=== PATIENT | male | born 1950 | race Caucasian/White ===

== ENCOUNTER 2020-12-04 12:13 | Observation (INO) | payer MEDICARE, OTHER ==
--- NOTE | 2020-12-04 12:49 | EDM.PDOC ---
ED HPI GENERAL MEDICAL PROBLEM - General Chief Complaint: Lower Extremity Injury/Pain Stated Complaint: [facility] Time Seen by Provider: 12/04/20 12:30 Source of Information: Reports: Patient, EMS History Limitations: Reports: No Limitations - History of Present Illness INITIAL COMMENTS - FREE TEXT/NARRATIVE: 70-year-old male fell a couple days ago onto his left buttock, and he has had steadily worsening pain in the area since that time. He is having difficulty ambulating and bearing weight. No significant bruising or swelling. No head injury, fevers or chills or other complaints. He arrived by ambulance. Onset: Sudden Duration: Day(s): (2 days ago) Location: Reports: Pelvis (Left-sided buttock and pelvis area with some pain in the left hip) Quality: Reports: Sharp Worsens with: Reports: Other (Walking or weightbearing increases discomfort), Movement Associated Symptoms: Reports: No Other Symptoms left hip Pain Score (Numeric/FACES): 6 - Related Data Allergies Allergy/AdvReac Type Severity Reaction Status Date / Time No Known Allergies Allergy Verified 07/26/18 17:12 Home Meds: Home Meds carvediloL [Carvedilol] 1 tab PO BID 12/04/20 [History] cloNIDine [Catapres] 1 tab PO DAILY 12/04/20 [History] hydroCHLOROthiazide [Hydrochlorothiazide] 1 tab PO DAILY 12/04/20 [History] levETIRAcetam [Levetiracetam] 1 tab PO BID 12/04/20 [History] lisinopriL [Lisinopril] 1 tab PO DAILY 12/04/20 [History] Past Medical History HEENT History: Reports: Hard of Hearing Cardiovascular History: Reports: Hypertension - Past Surgical History Neurological Surgical History: Reports: Other (See Below) Review of Systems - Review of Systems Review Of Systems: See Below Constitutional: Denies: Fever Respiratory: Reports: No Symptoms Cardiovascular: Reports: No Symptoms GI/Abdominal: Reports: No Symptoms Musculoskeletal: Reports: Other (Chronic lower extremity weakness) Skin: Reports: Bruising (Bruises easily) Neurological: Reports: Dizziness, Weakness Psychiatric: Reports: Other (Chronic alcoholism) ED EXAM, GENERAL - Physical Exam Exam: See Below Exam Limited By: No Limitations General Appearance: Alert, No Apparent Distress, Other (Not significantly uncomfortable when lying supine and still) Head: Atraumatic Respiratory/Chest: No Respiratory Distress, Lungs Clear Cardiovascular: Regular Rate, Rhythm GI/Abdominal: Non-Tender Back Exam: Other (When lying on the right side, the buttock and low back was examined on the left side which showed no hematoma, bruising or asymmetry) Extremities: Other (A pulling sensation and pain in the left buttock with passive range of motion of the left lower extremity especially flexion of the hip. Internal and external rotation of the hip is somewhat tender.) Neurological: Alert, Oriented Skin Exam: Warm, Dry Course - Vital Signs Last Recorded V/S: Last Vital Signs Temp 99.1 F 12/04/20 15:13 Pulse 85 12/04/20 15:13 Resp 16 12/04/20 15:13 BP 161/79 H 12/04/20 15:13 Pulse Ox 93 L 12/04/20 15:13 - Orders/Labs/Meds Orders: Medication Orders Acetaminophen (Acetaminophen 500 Mg Tab) 1,000 mg PO TID [facility] Last Admin: 12/04/20 16:00 Dose: 1,000 mg Documented by: JUHI Albuterol (Albuterol 0.083% 2.5 Mg/3 Ml Neb Soln) 2.5 mg NEB Q4H PRN PRN Reason: Shortness Of Breath/wheezing Influenza Virus Vaccine (Flu Vacc [id number](65yr Up)/Pf 240 Mcg/0.7 Ml Syringe) 240 mcg IM .ONCE ONE Stop: 12/04/20 17:01 Lorazepam (Lorazepam 2 Mg/Ml Sdv) 0.5 mg IVPUSH Q4H PRN PRN Reason: Nausea/Vomiting Magnesium Hydroxide (Magnesium Hydroxide 400 Mg/5 Ml Susp 30 Ml Cup) 30 ml PO Q12H PRN PRN Reason: Constipation Melatonin (Melatonin 3 Mg Tab) 9 mg PO BEDTIME PRN PRN Reason: Sleep Non-Formulary Medication (Carvedilol [Carvedilol]) 1 tab PO BID BRUCE Non-Formulary Medication (Clonidine [Catapres]) 1 tab PO DAILY BRUCE Non-Formulary Medication (Hydrochlorothiazide [Hydrochlorothiazide]) 1 tab PO DAILY BRUCE Non-Formulary Medication (Levetiracetam [Levetiracetam]) 1 tab PO BID BRUCE Non-Formulary Medication (Lisinopril [Lisinopril]) 1 tab PO DAILY [facility] Ondansetron HCl (Ondansetron 4 Mg/2 Ml Sdv) 4 mg IV Q6H PRN PRN Reason: Nausea/Vomiting Ondansetron HCl (Ondansetron 4 Mg Tab.Dis) 4 mg PO Q6H PRN PRN Reason: Nausea able to take PO Oxycodone HCl (Oxycodone 5 Mg Tab) 5 - 10 mg PO Q4H PRN PRN Reason: Pain Senna/Docusate Sodium (Docusate Sodium/Sennosides 50-8.6 Mg Tab) 1 tab PO BID [facility] Labs: Laboratory Tests 12/04/20 12/04/20 12/04/20 Range/Units 14:22 14:22 14:22 WBC 7.9 (4.5-11.0) K/uL RBC 2.85 L (4.30-5.90) M/uL Hgb 9.7 L D (12.0-15.0) g/dL Hct 29.2 L (40.0-54.0) % MCV 103 H (80-98) fL MCH 34 H (27-31) pg MCHC 33 (32-36) % Plt Count 252 (150-400) K/uL Neut % (Auto) 70 H (36-66) % Lymph % (Auto) 16 L (24-44) % [place] % (Auto) 12 H (2-6) % Eos % (Auto) 2 (2-4) % Baso % (Auto) 0 (0-1) % Sodium 141 (140-148) mmol/L Potassium 5.0 (3.6-5.2) mmol/L Chloride 105 (100-108) mmol/L Carbon Dioxide 30 (21-32) mmol/L Anion Gap 6.4 (5.0-14.0) mmol/L BUN 27 H D (7-18) mg/dL Creatinine 0.9 (0.8-1.3) mg/dL Est Cr Clr Drug Dosing 73.50 mL/min Estimated GFR (MDRD) > 60 (>60) Glucose 99 (74-106) mg/dL Calcium 9.5 (8.5-10.1) mg/dL Total Bilirubin 0.6 (0.2-1.0) mg/dL AST 23 (15-37) U/L ALT 29 (12-78) U/L Alkaline Phosphatase 58 (46-116) U/L Total Protein 6.4 (6.4-8.2) g/dL Albumin 3.1 L (3.4-5.0) g/dL Globulin 3.3 (2.3-3.5) g/dL Albumin/Globulin Ratio 0.9 L (1.2-2.2) Ethyl Alcohol < 3 mg/dL Meds: Medications Generic Name Dose Route Start Last Admin Trade Name Freq PRN Reason Stop Dose Admin Acetaminophen 1,000 mg 12/04/20 15:33 12/04/20 16:00 Acetaminophen 500 Mg Tab PO 1,000 mg TID BRUCE Administration Albuterol 2.5 mg 12/04/20 15:33 Albuterol 0.083% 2.5 Mg/3 Ml Neb Soln NEB Q4H PRN Shortness Of Breath/wheezing Influenza Virus Vaccine 240 mcg 12/04/20 17:00 Flu Vacc [id number](65yr Up)/Pf 240 Mcg/0.7 Ml Syringe IM 12/04/20 17:01 .ONCE ONE Lorazepam 0.5 mg 12/04/20 15:33 Lorazepam 2 Mg/Ml Sdv IVPUSH Q4H PRN Nausea/Vomiting Magnesium Hydroxide 30 ml 12/04/20 15:33 Magnesium Hydroxide 400 Mg/5 Ml Susp 30 Ml Cup PO Q12H PRN Constipation Melatonin 9 mg 12/04/20 15:33 Melatonin 3 Mg Tab PO BEDTIME PRN Sleep Non-Formulary Medication 1 tab 12/04/20 21:00 Carvedilol [Carvedilol] PO BID BRUCE Non-Formulary Medication 1 tab 12/05/20 09:00 Clonidine [Catapres] PO DAILY BRUCE Non-Formulary Medication 1 tab 12/05/20 09:00 Hydrochlorothiazide [Hydrochlorothiazide] PO DAILY BRUCE Non-Formulary Medication 1 tab 12/04/20 21:00 Levetiracetam [Levetiracetam] PO BID BRUCE Non-Formulary Medication 1 tab 12/05/20 09:00 Lisinopril [Lisinopril] PO DAILY BRUCE Ondansetron HCl 4 mg 12/04/20 15:33 Ondansetron 4 Mg/2 Ml Sdv IV Q6H PRN Nausea/Vomiting Ondansetron HCl 4 mg 12/04/20 15:33 Ondansetron 4 Mg Tab.Dis PO Q6H PRN Nausea able to take PO Oxycodone HCl 5 - 10 mg 12/04/20 15:33 Oxycodone 5 Mg Tab PO Q4H PRN Pain Senna/Docusate Sodium 1 tab 12/04/20 21:00 Docusate Sodium/Sennosides 50-8.6 Mg Tab PO BID BRUCE Discontinued Medications Generic Name Dose Route Start Last Admin Trade Name Freq PRN Reason Stop Dose Admin Influenza Virus Vaccine 1 each 12/04/20 16:14 Pharmacy To Dose - Influenza Vaccine IM 12/04/20 16:15 ONETIME ONE - Re-Assessments/Exams Free Text/Narrative Re-Assessment/Exam: 12/04/20 12:[address] was ordered. 12/04/20 14:13 CT shows a minimally displaced left pelvic ramus fracture. Because of his already unsteady and weakened state at baseline, I feel he should be monitored for the next day or 2 and have physical therapy assess him to make sure he is safe going home. I talked to Dr. Gilbert, he kindly agreed to put the patient in for treatment and any further evaluation if needed. CBC and CMP along with EtOH were obtained. 12/04/20 15:52 IMPRESSION: 1. Acute fractures of the medial left pubic bone, superior pubic ramus and inferior pubic ramus with less than 1 cm displacement. 2. Acute nondisplaced fracture of the left sacrum. 3. No proximal femoral or acetabular fracture. 4. Acute hematoma within the anterior pelvis measuring approximately 6.7 cm long dimension. This is extraperitoneal and exerts mass-effect on the urinary bladder. 5. Degenerative changes. Dictated by Ravinder King MD @ 11/21 Departure - Departure Time of Disposition: 15:57 Disposition: Admitted As Inpatient 66 Clinical Impression: Fracture of pelvis, closed, Fracture of sacrum - Discharge Information Sepsis Event Note (ED) - Focused Exam Vital Signs: Vital Signs Temp Pulse Resp BP Pulse Ox 12/04/20 12:51 97.7 F 86 18 103/77 100 12/04/20 12:28 97.7 F 86 18 103/77 100
--- NOTE | 2020-12-04 14:26 | CRLCT ---
HISTORY: Fall, left buttock and hip pain. TECHNIQUE: Noncontrast CT of the pelvis. COMPARISON: No prior. FINDINGS: There is an acute comminuted fracture of the medial left pubic bone extending to involve the superior pubic ramus demonstrating less than 1 cm displacement. Acute fracture left inferior pubic ramus demonstrates less than 1 cm displacement. Acute nondisplaced fracture of the left sacrum. There is no acetabular or proximal femoral fracture. An acute hematoma is present within the left anterior pelvis close to the medial pubic bone fracture. The hematoma measures approximately 5.3 x 6.7 x 5 cm in size. The hematoma exerts mass-effect on the urinary bladder and is extraperitoneal. - Degenerative changes of the hips and pubic symphysis. Degenerative change of the sacroiliac joints. Degenerative disc and facet joint disease within the lower lumbar spine and at the lumbosacral junction. - Aortoiliac atherosclerotic vascular calcifications. The common iliac artery is dilated to 3 cm in diameter. Prostate is mildly prominent size. Moderate stool within the rectum. Colonic diverticulosis. IMPRESSION: 1. Acute fractures of the medial left pubic bone, superior pubic ramus and inferior pubic ramus with less than 1 cm displacement. 2. Acute nondisplaced fracture of the left sacrum. 3. No proximal femoral or acetabular fracture. 4. Acute hematoma within the anterior pelvis measuring approximately 6.7 cm long dimension. This is extraperitoneal and exerts mass-effect on the urinary bladder. 5. Degenerative changes. Dictated by Ravinder King MD @ 12/04/2020 2:24:53 PM Please note that all CT scans at this facility use dose modulation, iterative reconstruction, and/or weight-based dosing when appropriate to reduce radiation dose to as low as reasonably achievable. Dictated by: Ravinder King MD @ 12/04/2020 14:24:59 (Electronically Signed)
--- NOTE | 2020-12-04 15:10 | PCM.HP.2 ---
H&P History of Present Illness - General Date of Service: 12/04/20 Admit Problem/Dx: Admission Diagnosis/Problem Admission Diagnosis/Problem Fracture of pelvis Source of Information: Patient, Provider History Limitations: Reports: No Limitations - History of Present Illness Initial Comments - Free Text/Narative: CC: Lion slipped on the ice feeding the birds HPI: Christiano presents to the emergency room today after slipping and falling on the ice 5 days ago. He reports progressive and now moderately severe sharp pain shooting from the left pelvis area down the left leg. This is worse with coughing and any sort of movement and especially weightbearing. Pain was helped a little bit by a "pain reliever" that he had at home. He is not sure what this medication was. He did try some ibuprofen and that just gave him a stomach upset. Pain has been getting worse and he is having more difficulty getting around home. He has not fallen since Saturday. He has a mild cough but this is chronic. No recent fevers. No abdominal pain or nausea. He came in today because of the steady increase in pain and difficulty with mobility. Work-up in the emergency room revealed fractures of the left superior and inferior pubic rami as well as the left side of the sacrum. He has a macrocytic anemia. He will be admitted for observation, pain control and physical therapy. left hip Pain Score (Numeric/FACES): 6 - Related Data Allergies/Adverse Reactions: Allergies Allergy/AdvReac Type Severity Reaction Status Date / Time No Known Allergies Allergy Verified 07/26/18 17:12 Home Medications: Home Meds carvediloL [Carvedilol] 1 tab PO BID 12/04/20 [History] cloNIDine [Catapres] 1 tab PO DAILY 12/04/20 [History] hydroCHLOROthiazide [Hydrochlorothiazide] 1 tab PO DAILY 12/04/20 [History] levETIRAcetam [Levetiracetam] 1 tab PO BID 12/04/20 [History] lisinopriL [Lisinopril] 1 tab PO DAILY 12/04/20 [History] Past Medical History HEENT History: Reports: Hard of Hearing Cardiovascular History: Reports: Hypertension - Past Surgical History Neurological Surgical History: Reports: Other (See Below) Social & Family History - Family History Cardiac: Denies: CAD - Tobacco Use Tobacco Use Status *Q: Current Every Day Tobacco User Years of Tobacco use: 50 Packs/Tins Daily: 0.5 - Alcohol Use Alcohol Use History: Yes Days Per Week of Alcohol Use: 7 Number of Drinks Per Day: 3 Total Drinks Per Week: 21 Alcohol Use in Last Twelve Months: Yes Alcohol Use Frequency: Daily - Recreational Drug Use Recreational Drug Use: No Drug Use in Last 12 Months: No H&P Review of Systems - Review of Systems: Review Of Systems: See Below Free Text/Narrative: A complete 12 point review of systems was obtained. Pertinent positives and negatives are noted in the history of present illness. All other systems were reviewed and were negative except as noted. Exam - Exam Exam: See Below - Vital Signs Vital Signs: Last Vital Signs Temp 36.5 C 12/04/20 12:51 Pulse 86 12/04/20 12:51 Resp 18 12/04/20 12:51 BP 103/77 12/04/20 12:51 Pulse Ox 100 12/04/20 12:51 Weight: 68.039 kg - Exam Quality Assessment: No: Supplemental Oxygen General: Alert, Oriented, Cooperative. No: Mild Distress HEENT: Conjunctiva Clear. No: Mucosa Moist & [place] (dry), Scleral Icterus Neck: Supple, Trachea Midline Lungs: Clear to Auscultation, Normal Respiratory Effort Cardiovascular: Regular Rate, Regular Rhythm. No: Systolic Murmur GI/Abdominal Exam: Normal Bowel Sounds, Soft, Non-Tender, No Distention Extremities: No Pedal Edema, Other (ttp anterior hip with AP pressure. No lateral ttp ). No: Joint Swelling, Increased Warmth Peripheral Pulses: 2+: Dorsalis Pedis (L), Dorsalis Pedis (R) Skin: Warm, Dry. No: Ecchymosis (no bruising or hematoma of left hip ) Neuro Extensive - Mental Status: Alert, Oriented x3, Nl Response to Commands Neuro Extensive - Motor, Sensory, Reflexes: No: Dysarthria, Abnormal Motor, Tremor Psychiatric: Alert, Normal Affect - Patient Data Lab Results Last 24 hrs: Laboratory Results - last 24 hr 12/04/20 12/04/20 12/04/20 Range/Units 14:22 14:22 14:22 WBC 7.9 (4.5-11.0) K/uL RBC 2.85 L (4.30-5.90) M/uL Hgb 9.7 L D (12.0-15.0) g/dL Hct 29.2 L (40.0-54.0) % MCV 103 H (80-98) fL MCH 34 H (27-31) pg MCHC 33 (32-36) % Plt Count 252 (150-400) K/uL Neut % (Auto) 70 H (36-66) % Lymph % (Auto) 16 L (24-44) % [place] % (Auto) 12 H (2-6) % Eos % (Auto) 2 (2-4) % Baso % (Auto) 0 (0-1) % Sodium 141 (140-148) mmol/L Potassium 5.0 (3.6-5.2) mmol/L Chloride 105 (100-108) mmol/L Carbon Dioxide 30 (21-32) mmol/L Anion Gap 6.4 (5.0-14.0) mmol/L BUN 27 H D (7-18) mg/dL Creatinine 0.9 (0.8-1.3) mg/dL Est Cr Clr Drug Dosing 73.50 mL/min Estimated GFR (MDRD) > 60 (>60) Glucose 99 (74-106) mg/dL Calcium 9.5 (8.5-10.1) mg/dL Total Bilirubin 0.6 (0.2-1.0) mg/dL AST 23 (15-37) U/L ALT 29 (12-78) U/L Alkaline Phosphatase 58 (46-116) U/L Total Protein 6.4 (6.4-8.2) g/dL Albumin 3.1 L (3.4-5.0) g/dL Globulin 3.3 (2.3-3.5) g/dL Albumin/Globulin Ratio 0.9 L (1.2-2.2) Ethyl Alcohol < 3 mg/dL Result Diagrams: 12/04/20 14:22 12/04/20 14:22 Imaging Impressions Last 24 hrs: CT pelvis-images personally reviewed-there are fractures of both the superior and inferior pubic rami. There is a fracture of the left superior portion of the sacrum. These are non-displaced. Sepsis Event Note - Evaluation Sepsis Screening Result: No Definite Risk - Focused Exam Vital Signs: Vital Signs Temp Pulse Resp BP Pulse Ox 12/04/20 12:51 36.5 C 86 18 103/77 100 12/04/20 12:28 36.5 C 86 18 103/77 100 *Q Meaningful Use (ADM) - VTE Risk Assess *Q Each Risk Factor Represents 1 Point: None Total Score 1 Point Risk Factors: 0 Each Risk Factor Represents 2 Points: Age 60 - 74 Years Total Score 2 Point Risk Factors: 2 Each Risk Factor Represents 3 Points: None Total Score 3 Point Risk Factors: 0 Each Risk Factor Represents 5 Points: Hip, Pelvis or Leg Fracture, Less than 1 month Total Score 5 Point Risk Factors: 5 Venous Thromboembolism Risk Factor Score *Q: 7 - Problem List (1) Fracture of pelvis, closed SNOMED Code(s): 19544376 ICD Code: S32.9XXA - FRACTURE OF UNSP PARTS OF LUMBOSACRAL SPINE AND PELVIS, INIT Status: Acute Current Visit: Yes Qualifiers: Encounter type: initial encounter Pelvic bone location: multiple parts Fracture alignment: without disruption of pelvic ring Qualified Code(s): S32.82XA - Multiple fractures of pelvis without disruption of pelvic ring, initial encounter for closed fracture (2) Fracture of sacrum SNOMED Code(s): 177368676 ICD Code: S32.10XA - UNSP FRACTURE OF SACRUM, INIT ENCNTR FOR CLOSED FRACTURE Status: Acute Current Visit: Yes Qualifiers: Encounter type: initial encounter Zone of sacrum fracture: unspecified portion of sacrum Fracture type: closed Qualified Code(s): S32.10XA - Unspecified fracture of sacrum, initial encounter for closed fracture (3) HTN (hypertension) SNOMED Code(s): 15550781 ICD Code: I10 - ESSENTIAL (PRIMARY) HYPERTENSION Status: Chronic Current Visit: Yes Qualifiers: Hypertension type: essential hypertension Qualified Code(s): I10 - Essential (primary) hypertension (4) 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 SNOMED Code(s): 268979167 ICD Code: F17.201 - NICOTINE DEPENDENCE, UNSPECIFIED, IN REMISSION Status: Chronic Current Visit: Yes (5) Alcohol dependence SNOMED Code(s): 12396759 ICD Code: F10.20 - ALCOHOL DEPENDENCE, UNCOMPLICATED Status: Chronic Current Visit: Yes Qualifiers: Substance use status: uncomplicated Qualified Code(s): F10.20 - Alcohol dependence, uncomplicated Problem List Initiated/Reviewed/Updated: Yes Orders Last 24hrs: Active Orders 24 hr Category Date Time Status Patient Status Manage Transfer [TRANSFER] Routine ADT 12/04/20 15:00 Ordered Resuscitation Status Routine Resus Stat 12/04/20 15:01 Ordered Assessment/Plan Comment:: ASSESSMENT AND PLAN - Multiple pelvic fractures-secondary to fall on the ice. He has progressive pain and difficulty with ambulation. Fractures are minimally displaced and should heal well. -Scheduled acetaminophen -As needed oxycodone -Physical therapy -Weightbearing as tolerated Macrocytic anemia-patient does have a history of daily alcohol use as discussed below. No report of blood loss. -B12, folate, iron and ferritin levels Essential hypertension-blood pressure control acceptable. -Continue home medications Alcohol dependence-patient reports drinking 3-4 beers per day. He does not report a history of alcohol withdrawal. 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 Maintenance issues - - DVT prophylaxis -mechanical - GI prophylaxis -not indicated - Nutrition -regular - [place] catheter -not indicated CODE STATUS -full code Admission justification -this patient will be admitted for inpatient services and is medically appropriate meeting medical necessity for inpatient admission as outlined in my documentation. I reasonably expect the patient will require inpatient services that span a period time over 2 midnights. I reasonably expect this patient to be discharged or transferred within 96 hours [facility]. Disposition -I would anticipate discharge home after the hospital stay, possibly with home care Primary care physician -Dr. Ish Gilbert M.D. - Mortality Measure Prognosis:: Good
[2020-12-04] MEDS ORDERED: Ondansetron 4 MG Tab.DIS PO PRN (15:33)
[2020-12-04] MEDS ORDERED: Magnesium Hydroxide 400 MG/5 ML Susp 30 ML Cup PO PRN (15:33)
[2020-12-04] MEDS ORDERED: Ondansetron 4 MG/2 ML SDV IV PRN (15:33)
[2020-12-04] MEDS ORDERED: Albuterol 0.083% 2.5 MG/3 ML Neb Soln NEB PRN (15:33)
[2020-12-04] MEDS ORDERED: LORazepam 2 MG/ML SDV IVPUSH PRN (15:33)
[2020-12-04] MEDS: Acetaminophen 500 MG Tab PO SCH ×2 (16:00→21:47)
[2020-12-04] MEDS ORDERED: FLU Vacc QV2020-21(65YR UP)/PF 240 MCG/0.7 ML Syringe IM ONE (17:00)
[2020-12-04] MEDS ORDERED: CARVEDILOL 12.5 MG PO SCH (21:00)
[2020-12-04] MEDS: CLONIDINE 0.1 MG PO SCH (21:02)
[2020-12-04] MEDS: LEVETIRACETAM 1000 MG PO SCH (21:06)
[2020-12-04] MEDS: LISINOPRIL 10 MG PO SCH (21:06)
[2020-12-04] MEDS: Melatonin 3 MG Tab PO PRN (21:12)
[2020-12-04] MEDS: oxyCODONE 5 MG Tab PO PRN (21:12)
[2020-12-04] MEDS: CARVEDILOL 12.5 MG PO SCH (21:41)
[2020-12-05] MEDS: oxyCODONE 5 MG Tab PO PRN ×4 (03:16→16:55)
[2020-12-05] MEDS: LEVETIRACETAM 1000 MG PO SCH ×3 (07:56→20:13)
[2020-12-05] MEDS: CARVEDILOL 12.5 MG PO SCH ×3 (07:57→20:13)
[2020-12-05] MEDS: CLONIDINE 0.1 MG PO SCH ×3 (07:58→20:12)
[2020-12-05] MEDS: LISINOPRIL 10 MG PO SCH ×3 (07:58→20:14)
[2020-12-05] MEDS: Acetaminophen 500 MG Tab PO SCH ×3 (08:56→20:15)
[2020-12-05] MEDS ORDERED: Non-Formulary Medication 1 Each (Lisinopril [Lisinopril] 10 MG Tablet) PO SCH (09:00)
[2020-12-05] MEDS ORDERED: CLONIDINE 0.1 MG PO SCH (09:00)
[2020-12-05] MEDS ORDERED: Non-Formulary Medication 1 Each (Hydrochlorothiazide [Hydrochlorothiazide] 25 MG Tablet) PO SCH (09:00)
[2020-12-05] MEDS ORDERED: Bisacodyl 10 MG Supp RECTAL ONE (10:40)
[2020-12-05] MEDS ORDERED: Sodium Phosphate,Monobasic/Sodium Phosphate,Dibasic Enema 133 ML Bottle RECTAL PRN (10:40)
[2020-12-05] MEDS ORDERED: Polyethylene Glycol 3350 Powder 17 GM Packet PO ONE (10:40)
--- NOTE | 2020-12-05 10:47 | PCM.PN ---
- General Info Date of Service: 12/05/20 Subjective Update: Mr. Ruvalcaba has been stable since admission yesterday. He is fairly comfortable at rest but does experience significant pain with transfers and ambulation. He was able to have a bowel movement this morning but still feels somewhat constipated. Functional Status: Reports: Tolerating Diet, Ambulating, Urinating - Review of Systems General: Reports: No Symptoms Pulmonary: Reports: No Symptoms Cardiovascular: Reports: No Symptoms Gastrointestinal: Reports: No Symptoms Musculoskeletal: Reports: Other (Pelvic pain) - Patient Data Vitals - Most Recent: Last Vital Signs Temp 97.9 F 12/05/20 10:22 Pulse 82 12/05/20 10:22 Resp 16 12/05/20 10:22 BP 107/57 L 12/05/20 10:22 Pulse Ox 100 12/05/20 10:22 Weight - Most Recent: 147 lb 3.2 oz I&O - Last 24 Hours: Intake & Output 12/04/20 12/05/20 12/05/20 22:59 06:59 14:59 Intake Total 600 500 240 Output Total 75 275 200 Balance 525 225 40 Lab Results Last 24 Hours: Laboratory Results - last 24 hr 12/04/20 12/04/20 12/04/20 Range/Units 14:22 14:22 14:22 WBC 7.9 (4.5-11.0) K/uL RBC 2.85 L (4.30-5.90) M/uL Hgb 9.7 L D (12.0-15.0) g/dL Hct 29.2 L (40.0-54.0) % MCV 103 H (80-98) fL MCH 34 H (27-31) pg MCHC 33 (32-36) % Plt Count 252 (150-400) K/uL Neut % (Auto) 70 H (36-66) % Lymph % (Auto) 16 L (24-44) % Maverick % (Auto) 12 H (2-6) % Eos % (Auto) 2 (2-4) % Baso % (Auto) 0 (0-1) % Sodium 141 (140-148) mmol/L Potassium 5.0 (3.6-5.2) mmol/L Chloride 105 (100-108) mmol/L Carbon Dioxide 30 (21-32) mmol/L Anion Gap 6.4 (5.0-14.0) mmol/L BUN 27 H D (7-18) mg/dL Creatinine 0.9 (0.8-1.3) mg/dL Est Cr Clr Drug Dosing 73.50 mL/min Estimated GFR (MDRD) > 60 (>60) Glucose 99 (74-106) mg/dL Calcium 9.5 (8.5-10.1) mg/dL Iron (65-175) ug/dL TIBC (250-450) ug/dl % Saturation (20-55) % Ferritin (8-388) ng/ml Total Bilirubin 0.6 (0.2-1.0) mg/dL AST 23 (15-37) U/L ALT 29 (12-78) U/L Alkaline Phosphatase 58 (46-116) U/L Total Protein 6.4 (6.4-8.2) g/dL Albumin 3.1 L (3.4-5.0) g/dL Globulin 3.3 (2.3-3.5) g/dL Albumin/Globulin Ratio 0.9 L (1.2-2.2) Vitamin B12 (193-986) pg/ml Folate (8.6-58.9) ng/ml Ethyl Alcohol < 3 mg/dL 12/05/20 12/05/20 12/05/20 Range/Units 04:40 04:40 04:40 WBC 6.3 (4.5-11.0) K/uL RBC 2.71 L (4.30-5.90) M/uL Hgb 9.2 L (12.0-15.0) g/dL Hct 27.7 L (40.0-54.0) % MCV 102 H (80-98) fL MCH 34 H (27-31) pg MCHC 33 (32-36) % Plt Count 252 (150-400) K/uL Neut % (Auto) (36-66) % Lymph % (Auto) (24-44) % Maverick % (Auto) (2-6) % Eos % (Auto) (2-4) % Baso % (Auto) (0-1) % Sodium 138 L (140-148) mmol/L Potassium 4.4 (3.6-5.2) mmol/L Chloride 101 (100-108) mmol/L Carbon Dioxide 28 (21-32) mmol/L Anion Gap 13.4 (5.0-14.0) mmol/L BUN 29 H (7-18) mg/dL Creatinine 0.9 (0.8-1.3) mg/dL Est Cr Clr Drug Dosing 72.13 mL/min Estimated GFR (MDRD) > 60 (>60) Glucose 94 (74-106) mg/dL Calcium 9.0 (8.5-10.1) mg/dL Iron 36 L (65-175) ug/dL TIBC 203 L (250-450) ug/dl % Saturation 18 L (20-55) % Ferritin 228 (8-388) ng/ml Total Bilirubin (0.2-1.0) mg/dL AST (15-37) U/L ALT (12-78) U/L Alkaline Phosphatase (46-116) U/L Total Protein (6.4-8.2) g/dL Albumin (3.4-5.0) g/dL Globulin (2.3-3.5) g/dL Albumin/Globulin Ratio (1.2-2.2) Vitamin B12 > 2000 H (193-986) pg/ml Folate 11.0 (8.6-58.9) ng/ml Ethyl Alcohol mg/dL Med Orders - Current: Current Medications Acetaminophen (Acetaminophen 500 Mg Tab) 1,000 mg PO TID [facility] Last Admin: 12/05/20 08:56 Dose: Not Given Documented by: Albuterol (Albuterol 0.083% 2.5 Mg/3 Ml Neb Soln) 2.5 mg NEB Q4H PRN PRN Reason: Shortness Of Breath/wheezing Bisacodyl (Bisacodyl 10 Mg Supp) 10 mg RECTAL ONETIME ONE Stop: 12/05/20 10:41 Carvedilol (Carvedilol 12.5 Mg TabPt Own) 12.5 mg PO BID [facility] Last Admin: 12/05/20 08:05 Dose: Not Given Documented by: Clonidine HCl (Clonidine 0.1 Mg Tab Pt Own) 0.1 mg PO BID [facility] Last Admin: 12/05/20 08:05 Dose: Not Given Documented by: Lisinopril (Lisinopril 10 Mg TabPt Own) 10 mg PO BID [facility] Last Admin: 12/05/20 08:05 Dose: Not Given Documented by: Lorazepam (Lorazepam 2 Mg/Ml Sdv) 0.5 mg IVPUSH Q4H PRN PRN Reason: Nausea/Vomiting Magnesium Hydroxide (Magnesium Hydroxide 400 Mg/5 Ml Susp 30 Ml Cup) 30 ml PO Q12H PRN PRN Reason: Constipation Last Admin: 12/05/20 07:56 Dose: 30 ml Documented by: Melatonin (Melatonin 3 Mg Tab) 9 mg PO BEDTIME PRN PRN Reason: Sleep Last Admin: 12/04/20 21:12 Dose: 9 mg Documented by: Non-Formulary Medication (Hydrochlorothiazide [Hydrochlorothiazide]) 1 tab PO DAILY [facility] Levetiracetam 1,000 (Mg Tablet Pt Own) 1 tab PO BID [facility] Last Admin: 12/05/20 08:05 Dose: Not Given Documented by: Ondansetron HCl (Ondansetron 4 Mg/2 Ml Sdv) 4 mg IV Q6H PRN PRN Reason: Nausea/Vomiting Ondansetron HCl (Ondansetron 4 Mg Tab.Dis) 4 mg PO Q6H PRN PRN Reason: Nausea able to take PO Oxycodone HCl (Oxycodone 5 Mg Tab) 5 - 10 mg PO Q4H PRN PRN Reason: Pain Last Admin: 12/05/20 07:55 Dose: 5 mg Documented by: Polyethylene Glycol (Polyethylene Glycol 3350 Powder 17 Gm Packet) 34 gm PO ONETIME ONE Stop: 12/05/20 10:41 Senna/Docusate Sodium (Docusate Sodium/Sennosides 50-8.6 Mg Tab) 1 tab PO BID [facility] Last Admin: 12/05/20 08:45 Dose: Not Given Documented by: Sodium Biphosphate/Sodium Phosphate (Sodium Phosphate,Monobasic/Sodium Phosphate,Dibasic Enema 133 Ml Bottle) 133 ml RECTAL ONETIME PRN PRN Reason: Constipation Discontinued Medications Carvedilol (Carvedilol 12.5 Mg TabPt Own) 1 mg PO BID [facility] Last Admin: 12/04/20 21:05 Dose: 12.5 mg Documented by: Influenza Virus Vaccine (Pharmacy To Dose - Influenza Vaccine) 1 each IM ONETIME ONE Stop: 12/04/20 16:15 Influenza Virus Vaccine (Flu Vacc [id number](65yr Up)/Pf 240 Mcg/0.7 Ml Syringe) 240 mcg IM .ONCE ONE Stop: 12/04/20 17:01 Last Admin: 12/04/20 17:38 Dose: 240 mcg Documented by: Non-Formulary Medication (Clonidine [Catapres]) 1 tab PO DAILY [facility] Non-Formulary Medication (Lisinopril [Lisinopril]) 1 tab PO DAILY [facility] - Exam General: Alert, Oriented, Cooperative, Mild Distress Lungs: Clear to Auscultation, Normal Respiratory Effort Cardiovascular: Regular Rate, Regular Rhythm, No Murmurs GI/Abdominal Exam: Soft, Non-Tender, No Organomegaly, No Distention Extremities: No Pedal Edema - Patient Data Lab Results Last 24 hrs: Laboratory Results - last 24 hr 12/04/20 12/04/20 12/04/20 Range/Units 14:22 14:22 14:22 WBC 7.9 (4.5-11.0) K/uL RBC 2.85 L (4.30-5.90) M/uL Hgb 9.7 L D (12.0-15.0) g/dL Hct 29.2 L (40.0-54.0) % MCV 103 H (80-98) fL MCH 34 H (27-31) pg MCHC 33 (32-36) % Plt Count 252 (150-400) K/uL Neut % (Auto) 70 H (36-66) % Lymph % (Auto) 16 L (24-44) % Maverick % (Auto) 12 H (2-6) % Eos % (Auto) 2 (2-4) % Baso % (Auto) 0 (0-1) % Sodium 141 (140-148) mmol/L Potassium 5.0 (3.6-5.2) mmol/L Chloride 105 (100-108) mmol/L Carbon Dioxide 30 (21-32) mmol/L Anion Gap 6.4 (5.0-14.0) mmol/L BUN 27 H D (7-18) mg/dL Creatinine 0.9 (0.8-1.3) mg/dL Est Cr Clr Drug Dosing 73.50 mL/min Estimated GFR (MDRD) > 60 (>60) Glucose 99 (74-106) mg/dL Calcium 9.5 (8.5-10.1) mg/dL Iron (65-175) ug/dL TIBC (250-450) ug/dl % Saturation (20-55) % Ferritin (8-388) ng/ml Total Bilirubin 0.6 (0.2-1.0) mg/dL AST 23 (15-37) U/L ALT 29 (12-78) U/L Alkaline Phosphatase 58 (46-116) U/L Total Protein 6.4 (6.4-8.2) g/dL Albumin 3.1 L (3.4-5.0) g/dL Globulin 3.3 (2.3-3.5) g/dL Albumin/Globulin Ratio 0.9 L (1.2-2.2) Vitamin B12 (193-986) pg/ml Folate (8.6-58.9) ng/ml Ethyl Alcohol < 3 mg/dL 12/05/20 12/05/20 12/05/20 Range/Units 04:40 04:40 04:40 WBC 6.3 (4.5-11.0) K/uL RBC 2.71 L (4.30-5.90) M/uL Hgb 9.2 L (12.0-15.0) g/dL Hct 27.7 L (40.0-54.0) % MCV 102 H (80-98) fL MCH 34 H (27-31) pg MCHC 33 (32-36) % Plt Count 252 (150-400) K/uL Neut % (Auto) (36-66) % Lymph % (Auto) (24-44) % Maverick % (Auto) (2-6) % Eos % (Auto) (2-4) % Baso % (Auto) (0-1) % Sodium 138 L (140-148) mmol/L Potassium 4.4 (3.6-5.2) mmol/L Chloride 101 (100-108) mmol/L Carbon Dioxide 28 (21-32) mmol/L Anion Gap 13.4 (5.0-14.0) mmol/L BUN 29 H (7-18) mg/dL Creatinine 0.9 (0.8-1.3) mg/dL Est Cr Clr Drug Dosing 72.13 mL/min Estimated GFR (MDRD) > 60 (>60) Glucose 94 (74-106) mg/dL Calcium 9.0 (8.5-10.1) mg/dL Iron 36 L (65-175) ug/dL TIBC 203 L (250-450) ug/dl % Saturation 18 L (20-55) % Ferritin 228 (8-388) ng/ml Total Bilirubin (0.2-1.0) mg/dL AST (15-37) U/L ALT (12-78) U/L Alkaline Phosphatase (46-116) U/L Total Protein (6.4-8.2) g/dL Albumin (3.4-5.0) g/dL Globulin (2.3-3.5) g/dL Albumin/Globulin Ratio (1.2-2.2) Vitamin B12 > 2000 H (193-986) pg/ml Folate 11.0 (8.6-58.9) ng/ml Ethyl Alcohol mg/dL Result Diagrams: 12/05/20 04:40 12/05/20 04:40 Sepsis Event Note - Evaluation Sepsis Screening Result: No Definite Risk - Focused Exam Vital Signs: Vital Signs Temp Pulse Pulse Resp BP BP Pulse Ox 12/05/20 10:22 97.9 F 82 16 107/57 L 100 12/05/20 07:58 126/78 12/05/20 07:57 86 126/78 12/05/20 07:33 98.1 F 86 16 126/78 100 12/05/20 03:00 97.2 F 81 16 133/80 98 - Problem List Review Problem List Initiated/Reviewed/Updated: Yes - My Orders Last 24 Hours: My Active Orders 12/05/20 10:40 Na Phos,M-B/Na Phos,DI-B [Fleet Enema] 133 ml RECTAL ONETIME PRN bisacodyL [Dulcolax] 10 mg RECTAL ONETIME ONE polyethylene glycoL 3350 [MiraLAX] 34 gm PO ONETIME ONE - Plan Plan:: ASSESSMENT AND PLAN Multiple pelvic fractures-secondary to fall on the ice. He has progressive pain and difficulty with ambulation. Fractures are minimally displaced and should heal well. Continues to experience significant pain with transfers and ambulation -Scheduled acetaminophen -As needed oxycodone -Physical therapy -Weightbearing as tolerated Macrocytic anemia-patient does have a history of daily alcohol use as discussed below. No report of blood loss. B12 and folate acid levels were within normal range, iron level low -Outpatient colonoscopy when he has recovered from his pelvic fracture Essential hypertension-blood pressure control acceptable. -Continue home medications Alcohol dependence-patient reports drinking 3-4 beers per day. He does not report a history of alcohol withdrawal. 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 Maintenance issues - - DVT prophylaxis -mechanical - GI prophylaxis -not indicated - Nutrition -regular - Conway catheter -not indicated CODE STATUS -full code Admission justification -this patient will be admitted for inpatient services and is medically appropriate meeting medical necessity for inpatient admission as outlined in my documentation. I reasonably expect the patient will require inpatient services that span a period time over 2 midnights. I reasonably expect this patient to be discharged or transferred within 96 hours after admission to the [facility]. Disposition -I would anticipate discharge home after the hospital stay, possibly with home care Primary care physician -Dr. Ish Gregorio
[2020-12-05] MEDS ORDERED: Polyethylene Glycol 3350 Powder 17 GM Packet ONE (12:07)
[2020-12-05] MEDS: Hydrochlorothiazide 25 MG Tab PO SCH (14:23)
[2020-12-05] MEDS: Melatonin 3 MG Tab PO PRN (20:19)
[2020-12-06] MEDS: oxyCODONE 5 MG Tab PO PRN ×2 (02:10→14:17)
[2020-12-06] MEDS: Acetaminophen 500 MG Tab PO SCH ×2 (09:06→13:11)
[2020-12-06] MEDS: LEVETIRACETAM 1000 MG PO SCH (09:07)
[2020-12-06] MEDS: LISINOPRIL 10 MG PO SCH (09:08)
[2020-12-06] MEDS: CLONIDINE 0.1 MG PO SCH (09:08)
[2020-12-06] MEDS: Hydrochlorothiazide 25 MG Tab PO SCH (09:09)
[2020-12-06 10:49] VITALS: BP 97/60; PULSE 80
[2020-12-06] MEDS: CARVEDILOL 12.5 MG PO SCH (11:33)
--- NOTE | 2020-12-06 12:01 | PCM.DCSUM1 ---
Discharge Summary - Hospital Course Brief History: Mr. Ruvalcaba is a 70-year-old gentleman who was admitted through the emergency department pelvic pain secondary to left superior and inferior pubic rami fractures as well as sacral fracture. - Discharge Data Discharge Date: 12/06/20 Discharge Disposition: Home, Self-Care 01 Condition: Fair - Referral to Home Health Primary Care Physician: PCP None - Discharge Diagnosis/Problem(s) (1) Fracture of pelvis, closed SNOMED Code(s): 79168977 ICD Code: S32.9XXA - FRACTURE OF UNSP PARTS OF LUMBOSACRAL SPINE AND PELVIS, INIT Status: Acute Current Visit: Yes Qualifiers: Encounter type: initial encounter Pelvic bone location: multiple parts Fracture alignment: without disruption of pelvic ring Qualified Code(s): S32.82XA - Multiple fractures of pelvis without disruption of pelvic ring, initial encounter for closed fracture (2) Fracture of sacrum SNOMED Code(s): 102760391 ICD Code: S32.10XA - UNSP FRACTURE OF SACRUM, INIT ENCNTR FOR CLOSED FRACTURE Status: Acute Current Visit: Yes Qualifiers: Encounter type: initial encounter Zone of sacrum fracture: unspecified portion of sacrum Fracture type: closed Qualified Code(s): S32.10XA - Unspecified fracture of sacrum, initial encounter for closed fracture (3) HTN (hypertension) SNOMED Code(s): 25888260 ICD Code: I10 - ESSENTIAL (PRIMARY) HYPERTENSION Status: Chronic Current Visit: Yes Qualifiers: Hypertension type: essential hypertension Qualified Code(s): I10 - Essential (primary) hypertension - Patient Summary/Data Consults: Consultations 12/04/20 15:33 PT Evaluation and Treatment [CONS] Routine Please Evaluate and Treat. PT Reason for Consult: Strengthening This query below is only for informational purposes and is not editable. Hospital Course: Mr. Levi presented to the emergency room after slipping and falling on the ice 5 days ago. He reports progressive and now moderately severe sharp pain shooting from the left pelvis area down the left leg. This is worse with coughing and any sort of movement and especially weightbearing. Pain was helped a little bit by a "pain reliever" that he had at home. He is not sure what this medication was. He did try some ibuprofen and that just gave him a stomach upset. Pain has been getting worse and he is having more difficulty getting around home. He has not fallen since Saturday. He has a mild cough but this is chronic. No recent fevers. No abdominal pain or nausea. He came in today because of the steady increase in pain and difficulty with mobility. Work-up in the emergency room revealed fractures of the left superior and inferior pubic rami as well as the left side of the sacrum. He has a macrocytic anemia. He was admitted for observation, pain control and physical therapy. Initially he did receive some IV fluids for hydration as well as pain medication as needed. He was seen daily by physical therapy and was walking in the hallways with minimal assistance prior to discharge he was also given 2 trials of maneuvering stairs. He refused home care with home physical therapy and Occupational Therapy. Iron levels were noted to be low and it is recommended that he undergo colonoscopy when he is recovered from his pelvic fracture. Activity will be as tolerated and he will resume his usual diet. Follow-up appointment will be scheduled with his primary care provider within 1 week. - Patient Instructions Diet: Usual Diet as Tolerated Activity: As Tolerated Other/Special Instructions: Please schedule follow-up appointment with primary care provider within 1 week. - Discharge Plan *PRESCRIPTION DRUG MONITORING PROGRAM REVIEWED*: Not Applicable *COPY OF PRESCRIPTION DRUG MONITORING REPORT IN PATIENT LEIGH: Not Applicable Prescriptions/Med Rec: oxyCODONE 5 mg PO Q4H PRN #20 tablet PRN Reason: Pain Home Medications: Home Meds carvediloL [Carvedilol] 1 tab PO BID 12/04/20 [History] cloNIDine [Catapres] 1 tab PO BID 12/04/20 [History] hydroCHLOROthiazide [Hydrochlorothiazide] 1 tab PO DAILY 12/04/20 [History] levETIRAcetam [Levetiracetam] 1 tab PO BID 12/04/20 [History] lisinopriL [Lisinopril] 1 tab PO BID 12/04/20 [History] oxyCODONE 5 mg PO Q4H PRN #20 tablet 12/06/20 [Rx] - Discharge Summary/Plan Comment DC Time >30 min.: No - Patient Data Vitals - Most Recent: Last Vital Signs Temp 97.1 F 12/06/20 10:47 Pulse 80 12/06/20 11:33 Resp 18 12/06/20 10:47 BP 97/60 12/06/20 11:33 Pulse Ox 100 12/06/20 10:47 Weight - Most Recent: 147 lb 3.207 oz I&O - Last 24 hours: Intake & Output 12/05/20 12/06/20 12/06/20 22:59 06:59 14:59 Output Total 250 250 300 Balance -250 -250 -300 Med Orders - Current: Current Medications Acetaminophen (Acetaminophen 500 Mg Tab) 1,000 mg PO TID [facility] [place] Last Admin: 12/06/20 09:06 Dose: 1,000 mg Documented by: Albuterol (Albuterol 0.083% 2.5 Mg/3 Ml Neb Soln) 2.5 mg NEB Q4H PRN PRN Reason: Shortness Of Breath/wheezing Carvedilol (Carvedilol 12.5 Mg TabPt Own) 12.5 mg PO BID [facility] [place] Last Admin: 12/06/20 11:33 Dose: Not Given Documented by: Clonidine HCl (Clonidine 0.1 Mg Tab Pt Own) 0.1 mg PO BID [facility] [place] Last Admin: 12/06/20 09:08 Dose: 0.1 mg Documented by: Hydrochlorothiazide (Hydrochlorothiazide 25 Mg Tab) 25 mg PO DAILY [facility] [place] Last Admin: 12/06/20 09:09 Dose: 25 mg Documented by: Lisinopril (Lisinopril 10 Mg TabPt Own) 10 mg PO BID [facility] [place] Last Admin: 12/06/20 09:08 Dose: 10 mg Documented by: Lorazepam (Lorazepam 2 Mg/Ml Sdv) 0.5 mg IVPUSH Q4H PRN PRN Reason: Nausea/Vomiting Magnesium Hydroxide (Magnesium Hydroxide 400 Mg/5 Ml Susp 30 Ml Cup) 30 ml PO Q12H PRN PRN Reason: Constipation Last Admin: 12/05/20 07:56 Dose: 30 ml Documented by: Melatonin (Melatonin 3 Mg Tab) 9 mg PO BEDTIME PRN PRN Reason: Sleep Last Admin: 12/05/20 20:19 Dose: 9 mg Documented by: Levetiracetam 1,000 (Mg Tablet Pt Own) 1 tab PO BID [facility] [place] Last Admin: 12/06/20 09:07 Dose: 1 tab Documented by: Ondansetron HCl (Ondansetron 4 Mg/2 Ml Sdv) 4 mg IV Q6H PRN PRN Reason: Nausea/Vomiting Ondansetron HCl (Ondansetron 4 Mg Tab.Dis) 4 mg PO Q6H PRN PRN Reason: Nausea able to take PO Oxycodone HCl (Oxycodone 5 Mg Tab) 5 - 10 mg PO Q4H PRN PRN Reason: Pain Last Admin: 12/06/20 02:10 Dose: 5 mg Documented by: Senna/Docusate Sodium (Docusate Sodium/Sennosides 50-8.6 Mg Tab) 1 tab PO BID [facility] [place] Last Admin: 12/06/20 09:06 Dose: 1 tab Documented by: Sodium Biphosphate/Sodium Phosphate (Sodium Phosphate,Monobasic/Sodium Phosphate,Dibasic Enema 133 Ml Bottle) 133 ml RECTAL ONETIME PRN PRN Reason: Constipation Discontinued Medications Bisacodyl (Bisacodyl 10 Mg Supp) 10 mg RECTAL ONETIME ONE Stop: 12/05/20 10:41 Last Admin: 12/05/20 16:50 Dose: Not Given Documented by: Carvedilol (Carvedilol 12.5 Mg TabPt Own) 1 mg PO BID [facility] [place] Last Admin: 12/04/20 21:05 Dose: 12.5 mg Documented by: Influenza Virus Vaccine (Pharmacy To Dose - Influenza Vaccine) 1 each IM ONETIME ONE Stop: 12/04/20 16:15 Influenza Virus Vaccine (Flu Vacc [id number](65yr Up)/Pf 240 Mcg/0.7 Ml Syringe) 240 mcg IM .ONCE ONE Stop: 12/04/20 17:01 Last Admin: 12/04/20 17:38 Dose: 240 mcg Documented by: Non-Formulary Medication (Clonidine [Catapres]) 1 tab PO DAILY [facility] [place] Non-Formulary Medication (Lisinopril [Lisinopril]) 1 tab PO DAILY [facility] [place] Polyethylene Glycol (Polyethylene Glycol 3350 Powder 17 Gm Packet) 34 gm PO ONETIME ONE Stop: 12/05/20 10:41 Last Admin: 12/05/20 12:02 Dose: 34 gm Documented by: Polyethylene Glycol (Polyethylene Glycol 3350 Powder 17 Gm Packet) Confirm Administered Dose 17 gm .ROUTE .STK-MED ONE Stop: 12/05/20 12:08 Last Admin: 12/05/20 12:19 Dose: Not Given Documented by: - Exam General: Reports: Alert, Oriented, Cooperative, Mild Distress Lungs: Reports: Clear to Auscultation, Normal Respiratory Effort Cardiovascular: Reports: Regular Rate, Regular Rhythm, No Murmurs GI/Abdominal Exam: Soft, Non-Tender, No Organomegaly, No Distention Extremities: No Pedal Edema
== END 2020-12-06 14:30 | disposition home or self-care (01) ==
LOC: JP.ED 12:13 → JP.MS 15:00
PROVIDERS: ADMIT Internal Medicine; ATTEND Hospitalist
DX: S32.82XA Multiple fractures of pelvis without disruption of pelvic ring, initial encounter for closed fracture (principal); Z23 Encounter for immunization; I10 Essential (primary) hypertension; D53.9 Nutritional anemia, unspecified; M16.12 Unilateral primary osteoarthritis, left hip; F17.201 Nicotine dependence, unspecified, in remission; F10.20 Alcohol dependence, uncomplicated; Z79.899 Other long term (current) drug therapy; W00.0XXA Fall on same level due to ice and snow, initial encounter
CPT/HCPCS: 36415; 72192; 80048; 80053; 80307; 82607; 82728; 82746; 83550; 85025; 85027; 90662; 97110; 97116; 97162; 97530; 97535; 99285; A9270; G0008; G0378

== ENCOUNTER 2020-12-24 20:17 | Emergency (ER) | payer MEDICARE, OTHER ==
[2020-12-24 20:26] VITALS: BP 116/84; PULSE 94
[2020-12-24] MEDS ORDERED: Magnesium Citrate Solution 296 ML Bottle PO ONE (21:15)
--- NOTE | 2020-12-24 21:19 | EDM.PDOC ---
ED HPI GENERAL MEDICAL PROBLEM - General Chief Complaint: Gastrointestinal Problem Stated Complaint: MEDICAL [facility] Time Seen by Provider: 12/24/20 20:53 Source of Information: Reports: Patient History Limitations: Reports: No Limitations - History of Present Illness INITIAL COMMENTS - FREE TEXT/NARRATIVE: chief complaint: constipation This is a 70 year old male presents to the ER via EMS, reports is constipated from medications. He was seen by his Primary Care Provider on December 14 for constipation, he was prescribe daily MOM, but he took most of the bottle had explosive diarrhea and hasn't had a bowel movement since then. He has a fractured pelvis and scrum and has been taking daily doses of narcotic pain medication. His last pain medication was at 6 pm, he also reports drinking today- had about 3 drinks. repots no other concerns. 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: Other Medication(s) (Milk of Magnesium) abd Pain Score (Numeric/FACES): 3 - Related Data Allergies Allergy/AdvReac Type Severity Reaction Status Date / Time No Known Allergies Allergy Verified 12/24/20 21:22 Home Meds: Home Meds carvediloL [Carvedilol] 1 tab PO BID 12/04/20 [History] cloNIDine [Catapres] 1 tab PO BID 12/04/20 [History] hydroCHLOROthiazide [Hydrochlorothiazide] 1 tab PO DAILY 12/04/20 [History] levETIRAcetam [Levetiracetam] 1 tab PO BID 12/04/20 [History] lisinopriL [Lisinopril] 1 tab PO BID 12/04/20 [History] oxyCODONE 5 mg PO Q4H PRN #20 tablet 12/06/20 [Rx] Past Medical History HEENT History: Reports: Hard of Hearing Cardiovascular History: Reports: Hypertension Gastrointestinal History: Reports: None Musculoskeletal History: Reports: Fracture Psychiatric History: Reports: Other (See Below) Other Psychiatric History: alcohol abuse - Past Surgical History Cardiovascular Surgical History: Reports: None GI Surgical History: Reports: Colonoscopy, Polypectomy Neurological Surgical History: Reports: Other (See Below) Other Neurological Surgeries/Procedures: blood clot removed after fall down stairs Social & Family History - Family History Family Medical History: Unobtainable - Caffeine Use Caffeine Use: Reports: Coffee - Living Situation & Occupation Occupation: Retired (Son lives in his home.) ED ROS GENERAL - Review of Systems Review Of Systems: See Below Constitutional: Reports: Other (abdominal cramping) HEENT: Reports: No Symptoms Respiratory: Reports: No Symptoms Cardiovascular: Reports: No Symptoms Endocrine: Reports: No Symptoms GI/Abdominal: Reports: Abdominal Pain, Constipation : Reports: No Symptoms Musculoskeletal: Reports: Other (fracute pelvis and scrum one month ago.) Skin: Reports: No Symptoms Neurological: Reports: No Symptoms Psychiatric: Reports: No Symptoms Hematologic/Lymphatic: Reports: No Symptoms Immunologic: Reports: No Symptoms ED EXAM, GENERAL - Physical Exam Exam: See Below Exam Limited By: No Limitations General Appearance: Alert, WD/WN, No Apparent Distress Ears: Normal External Exam Nose: Normal Inspection Throat/Mouth: Normal Inspection Head: Atraumatic, Normocephalic Neck: Normal Inspection, Supple, Non-Tender, Full Range of Motion Respiratory/Chest: No Respiratory Distress, Lungs Clear, Normal Breath Sounds, No Accessory Muscle Use, Chest Non-Tender Cardiovascular: Normal Peripheral Pulses, Regular Rate, Rhythm, No Edema GI/Abdominal: Normal Bowel Sounds, Soft, Non-Tender, No Distention (Male) Exam: Deferred Rectal (Males) Exam: Deferred Back Exam: Normal Inspection, Full Range of Motion, NT Extremities: Normal Inspection, Normal Range of Motion, Non-Tender, Normal Capillary Refill, No Pedal Edema Neurological: Alert, Oriented, CN II-XII Intact, Normal Cognition Psychiatric: Normal Affect, Normal Mood Skin Exam: Warm, Dry, Intact, Normal Color, No Rash Lymphatic: No Adenopathy Course - Vital Signs Last Recorded V/S: Last Vital Signs Temp 97.6 F 12/24/20 20:45 Pulse 94 12/24/20 20:45 Resp 16 12/24/20 20:45 BP 116/84 12/24/20 20:45 Pulse Ox 98 12/24/20 20:45 - Orders/Labs/Meds Meds: Medications Discontinued Medications Generic Name Dose Route Start Last Admin Trade Name Freq PRN Reason Stop Dose Admin Magnesium Citrate 296 ml 12/24/20 21:15 12/24/20 21:35 Magnesium Citrate Solution 296 Ml Bottle PO 12/24/20 21:16 296 ml ONETIME ONE Administration - Re-Assessments/Exams Free Text/Narrative Re-Assessment/Exam: 12/24/20 discussed treatment options for constipation. Offer enema - patient not sure if he would like that done. Offer Magnesium Citrate - he would like to try this. and will prescribe daily stool softener. discussed drinking more water. Departure - Departure Time of Disposition: 23:40 Disposition: Home, Self-Care 01 Condition: Good Clinical Impression: Constipation - Discharge Information *PRESCRIPTION DRUG MONITORING PROGRAM REVIEWED*: Not Applicable *COPY OF PRESCRIPTION DRUG MONITORING REPORT IN PATIENT LEIGH: Not Applicable Instructions: Constipation, Adult, [id number], Pain Medicine Instructions, [id number] Referrals: PCP,None [Primary Care Provider] - Forms: ED Department Discharge Care Plan Goals: Constipation -increase stool softener to two time a day -drink water or juice- 8 glasses a day -increase fiber in diet -return to ER or Clinic if not improved or symptoms worsen. Sepsis Event Note (ED) - Evaluation Sepsis Screening Result: No Definite Risk - Focused Exam Vital Signs: Vital Signs Temp Pulse Resp BP Pulse Ox 12/24/20 20:45 97.6 F 94 16 116/84 98 12/24/20 20:24 97.6 F 94 16 116/84 98 - Problem List & Annotations (1) Constipation SNOMED Code(s): 00924828 Code(s): K59.00 - CONSTIPATION, UNSPECIFIED Status: Acute Priority: High Current Visit: Yes - Problem List Review Problem List Initiated/Reviewed/Updated: Yes - Assessment/Plan Plan: Constipation -increase stool softener to two time a day -drink water or juice- 8 glasses a day -increase fiber in diet -return to ER or Clinic if not improved or symptoms worsen.
== END 2020-12-25 06:38 | disposition home or self-care (01) ==
LOC: JP.ED 20:17
DX: K59.00 Constipation, unspecified (principal); I10 Essential (primary) hypertension; Z79.899 Other long term (current) drug therapy
CPT/HCPCS: 99283; A9270

== ENCOUNTER 2021-05-08 20:44 | Emergency (ER) | payer MEDICARE ==
[2021-05-08 21:09] VITALS: BP 128/80; PULSE 81
--- NOTE | 2021-05-08 21:09 | EDM.PDOC ---
ED HPI GENERAL MEDICAL PROBLEM - General Chief Complaint: Head Injury Stated Complaint: FALL-HEAD INJURY [facility]IA [place] Time Seen by Provider: 05/08/21 20:48 Source of Information: Reports: Patient, EMS History Limitations: Reports: No Limitations - History of Present Illness INITIAL COMMENTS - FREE TEXT/NARRATIVE: Christiano is a 70-year-old male presenting via [facility] for evaluation of a head injury causing laceration to the occipital scalp. The patient fell from standing position striking the back of his head over the right parietal occipital scalp and also sustaining a through and through laceration to the left earlobe. The patient reports he has a couple of beers every day including today. He was standing and lost his balance causing him to fall. The patient denies any loss of consciousness. He denies any headache, vision changes, nausea or vomiting. He also did sustain skin tears to both hands. Patient does report he has frequent falls at home. Patient is not on any anticoagulation. 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: Reports: IV/IO, See EMS Report Right Middle Posterior Parietal Head Pain Score (Numeric/FACES): 1 - Related Data Allergies Allergy/AdvReac Type Severity Reaction Status Date / Time No Known Allergies Allergy Verified 05/08/21 20:54 Home Meds: Home Meds carvediloL [Carvedilol] 1 tab PO BID 12/04/20 [History] cloNIDine [Catapres] 1 tab PO BID 12/04/20 [History] hydroCHLOROthiazide [Hydrochlorothiazide] 1 tab PO DAILY 12/04/20 [History] levETIRAcetam [Levetiracetam] 1 tab PO BID 12/04/20 [History] lisinopriL [Lisinopril] 1 tab PO BID 12/04/20 [History] Past Medical History HEENT History: Reports: Hard of Hearing Cardiovascular History: Reports: Hypertension Gastrointestinal History: Reports: None Musculoskeletal History: Reports: Fracture Neurological History: Reports: Seizure Psychiatric History: Reports: Addiction, Other (See Below) Other Psychiatric History: alcohol abuse - Infectious Disease History Infectious Disease History: Reports: Chicken Pox - Past Surgical History Cardiovascular Surgical History: Reports: None GI Surgical History: Reports: Colonoscopy, Polypectomy Neurological Surgical History: Reports: Other (See Below) Other Neurological Surgeries/Procedures: blood clot removed after fall down stairs Social & Family History - Family History Family Medical History: Unobtainable - Caffeine Use Caffeine Use: Reports: Coffee - Living Situation & Occupation Occupation: Retired (Son lives in his home.) ED ROS GENERAL - Review of Systems Review Of Systems: See Below Constitutional: Reports: No Symptoms HEENT: Reports: Other (Laceration to the right parietal occipital scalp, laceration to the left ear. Patient is extremely hard of hearing.) Respiratory: Reports: No Symptoms Cardiovascular: Reports: No Symptoms Endocrine: Reports: No Symptoms GI/Abdominal: Reports: No Symptoms : Reports: No Symptoms Musculoskeletal: Reports: No Symptoms Skin: Reports: No Symptoms Neurological: Reports: No Symptoms Psychiatric: Reports: No Symptoms Hematologic/Lymphatic: Reports: No Symptoms Immunologic: Reports: No Symptoms ED EXAM, HEAD INJURY - Physical Exam Exam: See Below Exam Limited By: Intoxication General Appearance: Alert, No Apparent Distress Head: Scalp Hematoma (4 cm diameter hematoma over the right parietal occipital scalp.), Scalp Tenderness, Active Bleeding (Bleeding from a 3.5 cm laceration of the scalp over the right parietal occipital skull amidst a large hematoma), Facial Lacerations (Through and through stellate laceration of the right earlobe) Nexus Criteria: Evidence of Intoxication. No: Posterior, Midline Cervical Tenderness, Altered Level of Consciousness, Focal Neurological Deficit, Painful Distraction Injuries Eyes: Bilateral Eye: EOMI, PERRL Ears: Normal External Exam, Normal TMs Nose: Normal Inspection Throat/Mouth: Normal Inspection, Normal Oropharynx, Normal Voice, No Airway Compromise Neck: Non-Tender, Full Range of Motion Respiratory: No Respiratory Distress, Lungs Clear Cardiovascular: Normal Peripheral Pulses, Regular Rate, Rhythm, No Murmur Extremities: Other (Skin tear to both hands) Neurologic: estate attorney II-XII nml As Tested, No Motor/Sensory Deficits, Alert, Oriented x 3 - Wali Coma Score Best Eye Response (Wali): (4) Open Spontaneously Best Verbal Response ([place]): (5) Oriented Best Motor Response (Wali): (6) Obeys Commands ED LACERATION/WOUND & CLAUDY PROC - Laceration/Wound Repair Right Posterior Lateral Occipital Head Lac/wound length in cm: 3.5 Appearance: Subcutaneous Distal NVT: Neuro & Vascular Intact Anesthetic Type: Local Local Anesthesia - Lidocaine (Xylocaine): 1% with EPI Local Anesthetic Volume: 3cc Skin Prep: Saline Exploration/Debridement/Repair: Wound Explored, In a Bloodless Field Closed with: [place] # of Sutures: 6 Sterile Dressing Applied: Nurse Tetanus Status Addressed: Yes Complications: No Left Ear Lac/wound length in cm: 1 Appearance: Stellate (Through and through) Anesthetic Type: Local Local Anesthesia - Lidocaine (Xylocaine): 1% with EPI Exploration/Debridement/Repair: Wound Explored, In a Bloodless Field Closed with: Sutures Suture Size: 5-0 # of Sutures: 6 Suture Type: Interrupted, Other (Fast-absorbing gut) Sterile Dressing Applied: Nurse Tetanus Status Addressed: Yes Complications: No Course - Vital Signs Last Recorded V/S: Last Vital Signs Temp 36.7 C 05/08/21 21:05 Pulse 81 05/08/21 21:05 Resp 18 05/08/21 21:05 BP 128/80 05/08/21 21:05 Pulse Ox 96 05/08/21 21:05 - Orders/Labs/Meds Meds: Medications Discontinued Medications Generic Name Dose Route Start Last Admin Trade Name Freq PRN Reason Stop Dose Admin Bacitracin 1 dose 05/08/21 21:14 Bacitracin Oint 1 Gm U/D Packet TOP 05/08/21 21:15 ONETIME ONE - Radiology Interpretation Free Text/Narrative:: I reviewed the images of the CT of the head without contrast as well as the report: FINDINGS: There is no acute intracranial hemorrhage. No extra-axial collection, mass effect, or midline shift. There is extensive encephalomalacia within the posterior right frontal, parietal, temporal, and occipital lobes, as well as the right orbital frontal gyrus with adjacent gliosis. There is resulting ex vacuo dilatation of the atrium, occipital, and temporal horns of the right lateral ventricle. Patchy hypoattenuation within the white matter of both hemispheres likely reflects sequela of chronic small vessel ischemia. Mild to moderate generalized parenchymal volume loss with resulting prominence of cerebral sulci and the ventricular system. Right parietal scalp laceration with associated small hematoma and overlying skin jose. No displaced calvarial fracture. Postsurgical changes related to prior right frontotemporal craniectomy. The orbits are unremarkable. The paranasal sinuses are unremarkable. The mastoid air cells are unremarkable. The soft tissues are unremarkable. IMPRESSION: 1. No CT evidence of acute intracranial abnormality or closed-head injury. 2. Right parietal scalp laceration with associated small hematoma and overlying skin jose. No evidence of acute displaced calvarial fracture. 3. Extensive encephalomalacia within the right cerebral hemisphere, as detailed above, as well as postsurgical changes related to prior right frontotemporal craniectomy. Please note that all CT scans at this facility use dose modulation, iterative reconstruction, and/or weight-based dosing when appropriate to reduce radiation dose to as low as reasonably achievable. Dictated by Manolo Rader MD @ 05/08/2021 9:47:27 PM - Re-Assessments/Exams Free Text/Narrative Re-Assessment/Exam: 05/08/21 21:55 Christiano presents with yet another fall. Patient has significant history for a subdural hemorrhage previously and an extensive right MCA stroke with encephalomalacia extending from the right frontal posterior segment all the way to the occipital lobe. This is likely the nidus for his recurring falls. The CT failed to demonstrate any acute abnormalities including hemorrhage, mass, or midline shift. He does have again the extensive encephalomalacia and evidence for previous craniotomy with fixation. There is no evidence for any acute cranial fractures. He does have a sizable hematoma over the right parietal occipital region with a jose evident on the CT of the head without contrast. Although he is intoxicated, he is alert and in no acute distress. We did repair the laceration on his ear with 5-0 chromic. These will dissolve on their own and will not need to be removed. His son is agreed to take him and watch him tonight. Indications to return to the ED were discussed and the patient is discharged in satisfactory condition. Departure - Departure Time of Disposition: 21:57 Disposition: Home, Self-Care 01 Clinical Impression: Recurrent falls, History of traumatic brain injury, History of subdural hemorrhage Hematoma of right parietal scalp Qualifiers: Encounter type: initial encounter Qualified Code(s): S00.03XA - Contusion of scalp, initial encounter Laceration of ear lobe Qualifiers: Encounter type: initial encounter Laterality: left Qualified Code(s): S01.312A - Laceration without foreign body of left ear, initial encounter - Discharge Information Instructions: Fall Prevention in the Home, Adult, [id number], Facial or Scalp Contusion, Head Injury, Adult, [id number], Laceration Care, Adult, [id number] Referrals: PCP,None [Primary Care Provider] - Forms: ED Department Discharge Care Plan Goals: The jose in your scalp will need to be removed in 7 to 10 days. You may go into the clinic or return to the ED for this. There is a special tool that we have to take them out. You may experience some bleeding from this wound over the next 24 hours until the scab forms. Try not to scrub the area over the jose as this will make it more painful and will cause it to bleed. The laceration of your ear should heal in the next 5 to 7 days. The sutures that I placed are dissolvable and do not need to be removed. There was no worrisome findings on your CT of the head today. Return to the emergency room should you develop a severe headache, new onset of numbness or tingling, difficulty with speech, or new weakness. Sepsis Event Note (ED) - Focused Exam Vital Signs: Vital Signs Temp Pulse Resp BP Pulse Ox 05/08/21 21:05 36.7 C 81 18 128/80 96 - Problem List & Annotations (1) Hematoma of right parietal scalp SNOMED Code(s): 665547510 Code(s): S00.03XA - CONTUSION OF SCALP, INITIAL ENCOUNTER Status: Acute Priority: High Current Visit: Yes Qualifiers: Encounter type: initial encounter Qualified Code(s): S00.03XA - Contusion of scalp, initial encounter (2) History of subdural hemorrhage SNOMED Code(s): 538637409 Code(s): Z86.79 - PERSONAL HISTORY OF OTHER DISEASES OF THE CIRCULATORY SYSTEM Status: Chronic Priority: High Current Visit: Yes (3) History of traumatic brain injury SNOMED Code(s): 60214981938292, 10913897063728 Code(s): Z87.820 - PERSONAL HISTORY OF TRAUMATIC BRAIN INJURY Status: Chronic Current Visit: Yes (4) Laceration of ear lobe SNOMED Code(s): 469311786, 582575737 Code(s): S01.319A - LACERATION WITHOUT FOREIGN BODY OF UNSP EAR, INIT ENCNTR Status: Acute Priority: High Current Visit: Yes Qualifiers: Encounter type: initial encounter Laterality: left Qualified Code(s): S01.312A - Laceration without foreign body of left ear, initial encounter (5) Recurrent falls SNOMED Code(s): 051230016 Code(s): R29.6 - REPEATED FALLS Status: Chronic Priority: Medium Current Visit: Yes - Problem List Review Problem List Initiated/Reviewed/Updated: Yes
[2021-05-08] MEDS ORDERED: Bacitracin Oint 1 GM U/D Packet TOP ONE (21:14)
--- NOTE | 2021-05-08 21:49 | CRLCT ---
For Patients: As a result of the Cures Act, medical imaging exams and procedure reports are released immediately into your electronic medical record. You may view this report before your referring provider. If you have questions, please contact your health care provider. DATE: 05/08/2021. CLINICAL HISTORY: Patient with fall; head injury. TECHNIQUE: Standard helical CT image acquisition of the brain was performed. COMPARISON: Head CT dated 07/26/2018. FINDINGS: There is no acute intracranial hemorrhage. No extra-axial collection, mass effect, or midline shift. There is extensive encephalomalacia within the posterior right frontal, parietal, temporal, and occipital lobes, as well as the right orbital frontal gyrus with adjacent gliosis. There is resulting ex vacuo dilatation of the atrium, occipital, and temporal horns of the right lateral ventricle. Patchy hypoattenuation within the white matter of both hemispheres likely reflects sequela of chronic small vessel ischemia. Mild to moderate generalized parenchymal volume loss with resulting prominence of cerebral sulci and the ventricular system. Right parietal scalp laceration with associated small hematoma and overlying skin jose. No displaced calvarial fracture. Postsurgical changes related to prior right frontotemporal craniectomy. The orbits are unremarkable. The paranasal sinuses are unremarkable. The mastoid air cells are unremarkable. The soft tissues are unremarkable. IMPRESSION: 1. No CT evidence of acute intracranial abnormality or closed-head injury. 2. Right parietal scalp laceration with associated small hematoma and overlying skin jose. No evidence of acute displaced calvarial fracture. 3. Extensive encephalomalacia within the right cerebral hemisphere, as detailed above, as well as postsurgical changes related to prior right frontotemporal craniectomy. Please note that all CT scans at this facility use dose modulation, iterative reconstruction, and/or weight-based dosing when appropriate to reduce radiation dose to as low as reasonably achievable. Dictated by Manolo Rader MD @ 05/08/2021 9:47:[address] Manolo Rader @ May 08 2021 9:47PM
[2021-05-08] MEDS ORDERED: Diphtheria,Pertussis(Acell),Tetanus Vaccine 0.5 ML Syringe IM ONE (22:02)
== END 2021-05-08 22:59 | disposition home or self-care (01) ==
LOC: JP.ED 20:44
DX: S01.312A Laceration without foreign body of left ear, initial encounter (principal); S01.01XA Laceration without foreign body of scalp, initial encounter; I10 Essential (primary) hypertension; R56.9 Unspecified convulsions; Z79.899 Other long term (current) drug therapy; Z23 Encounter for immunization; W22.8XXA Striking against or struck by other objects, initial encounter
CPT/HCPCS: 12002; 12011; 70450; 90471; 90715; 99284-25

== ENCOUNTER 2022-03-08 07:03 | Day surgery (SDC) | payer MEDICARE, SELFPAY ==
[2022-03-08] MEDS ORDERED: fentaNYL 100 MCG/2 ML SDV ONE (07:16)
[2022-03-08] MEDS ORDERED: Midazolam 1 MG/ML 2 ML SDV ONE (07:16)
[2022-03-08] MEDS ORDERED: Propofol 200 MG/20 ML SDV ONE (07:16)
[2022-03-08] MEDS ORDERED: Lactated Ringers 1,000 ML IV SCH (07:30)
[2022-03-08 10:01] VITALS: BP 128/102; PULSE 86
== END 2022-03-08 10:30 | disposition home or self-care (01) ==
LOC: JP.SDS 07:03
PROVIDERS: ATTEND Family Medicine
DX: Z12.11 Encounter for screening for malignant neoplasm of colon (principal); D12.8 Benign neoplasm of rectum; I10 Essential (primary) hypertension; F17.200 Nicotine dependence, unspecified, uncomplicated; Z98.890 Other specified postprocedural states; Z01.812 Encounter for preprocedural laboratory examination; Z20.822 Contact with and (suspected) exposure to COVID-19
CPT/HCPCS: 45380; 88305; J2250; J2704; J3010; J7120; U0002

== ENCOUNTER 2022-11-27 14:35 | Emergency (ER) | payer MEDICARE ==
[2022-11-27] MEDS ORDERED: Ondansetron 4 MG/2 ML SDV IVPUSH ONE ×2 (15:24→21:54)
[2022-11-27] MEDS ORDERED: Lisinopril 10 MG Tab PO ONE (15:46)
[2022-11-27] MEDS ORDERED: Carvedilol 12.5 MG Tab PO ONE (15:47)
[2022-11-27 15:58] LABS: ESTIMATED GFR 98 mL/min (>60)
[2022-11-27] MEDS ORDERED: Sodium Chloride 0.9% 1,000 ML IV SCH (16:15)
[2022-11-27] MEDS ORDERED: HYDROmorphone 0.5 MG/0.5 ML Syringe IVPUSH ONE ×3 (16:16→21:54)
[2022-11-27 18:51] LABS: CORONAVIRUS COVID-19 NAA NEGATIVE (NEGATIVE)
[2022-11-27] MEDS ORDERED: Metoprolol Tartrate 5 MG/5 ML SDV IVPUSH ONE (19:23)
[2022-11-28] MEDS ORDERED: HYDROmorphone 0.5 MG/0.5 ML Syringe IVPUSH ONE ×2 (05:16→07:00)
[2022-11-28 06:11] VITALS: BP 132/96; PULSE 111
== END 2022-11-28 07:00 ==
LOC: JP.ED 14:35
DX: S72.001A Fracture of unspecified part of neck of right femur, initial encounter for closed fracture (principal); R55 Syncope and collapse; I10 Essential (primary) hypertension; J44.9 Chronic obstructive pulmonary disease, unspecified; Z79.82 Long term (current) use of aspirin; Z79.899 Other long term (current) drug therapy; Z86.16 Personal history of COVID-19; Z72.0 Tobacco use; Z20.822 Contact with and (suspected) exposure to COVID-19
CPT/HCPCS: 0241U; 36415; 70450; 73502; 80053; 80307; 81001; 85025; 93005; 93010; 96361; 96374; 96375; 99285; A9270; J1170; J2405; J3490; J7030

== ENCOUNTER 2022-12-04 15:11 | Inpatient (IN) | payer MEDICARE ==
[2022-12-04] MEDS ORDERED: Pantoprazole 40 MG Vial IVPUSH ONE ×2 (15:36→16:31)
[2022-12-04] MEDS ORDERED: Sodium Chloride 0.9% 1,000 ML IV SCH (15:45)
[2022-12-04 16:10] LABS: ESTIMATED GFR 71 mL/min (>60)
[2022-12-04] MEDS ORDERED: Pantoprazole 80 MG in Sodium Chloride 0.9% 100 ML IV SCH (16:45)
[2022-12-04] MEDS: Pantoprazole 80 MG in Sodium Chloride 0.9% 100 ML IV SCH (16:55)
[2022-12-04] MEDS ORDERED: Sodium Polystyrene Sulfonate 15 GM/60 ML Susp 60 ML Bot RECTAL ONE (17:02)
[2022-12-04 17:25] LABS: CORONAVIRUS COVID-19 NAA NEGATIVE (NEGATIVE)
[2022-12-04] MEDS ORDERED: Acetaminophen 325 MG Tab PO PRN (18:43)
[2022-12-04] MEDS ORDERED: oxyCODONE 5 MG Tab PO PRN (18:43)
[2022-12-04] MEDS ORDERED: Sodium Chloride 0.9% 10 ML Syringe FLUSH PRN (18:43)
[2022-12-04] MEDS ORDERED: Ondansetron 4 MG/2 ML SDV IV PRN (18:43)
[2022-12-04] MEDS ORDERED: LORazepam 2 MG/ML SDV IV SCH (18:43)
[2022-12-04] MEDS ORDERED: LORazepam 1 MG Tab PO SCH (18:43)
[2022-12-04] MEDS ORDERED: MVI, Adult with Vitamin K 10 ML, Thiamine 100 MG, Folic Acid 1 MG, Magnesium Sulfate 2 ... IV ONE ×5 (18:43)
[2022-12-04] MEDS: Carvedilol 12.5 MG Tab PO SCH (20:27)
[2022-12-04] MEDS: cloNIDine 0.1 MG Tab PO SCH (20:27)
[2022-12-04] MEDS: Lisinopril 10 MG Tab PO SCH (20:27)
[2022-12-04] MEDS: levETIRAcetam 250 MG Tab PO SCH (20:42)
[2022-12-04] MEDS: Sodium Chloride 0.9% 1,000 ML IV SCH (20:42)
[2022-12-04] MEDS: Melatonin 3 MG Tab PO SCH ×2 (20:46→22:06)
[2022-12-05] MEDS: Pantoprazole 80 MG in Sodium Chloride 0.9% 100 ML IV SCH ×3 (03:00→23:21)
[2022-12-05] MEDS ORDERED: fentaNYL 50 MCG/ML SDV ONE (06:56)
[2022-12-05] MEDS ORDERED: Propofol 200 MG/20 ML SDV ONE (06:56)
[2022-12-05] MEDS ORDERED: Lactated Ringers 1,000 ML ONE (07:39)
[2022-12-05] MEDS: Sodium Chloride 0.9% 1,000 ML IV SCH (08:14)
[2022-12-05] MEDS: Carvedilol 12.5 MG Tab PO SCH ×2 (08:27→20:21)
[2022-12-05] MEDS: cloNIDine 0.1 MG Tab PO SCH ×2 (08:27→20:21)
[2022-12-05] MEDS: Folic Acid 1 MG Tab PO SCH (08:30)
[2022-12-05] MEDS: levETIRAcetam 250 MG Tab PO SCH ×2 (08:30→20:21)
[2022-12-05] MEDS: Lisinopril 10 MG Tab PO SCH ×2 (08:30→20:21)
[2022-12-05] MEDS: Thiamine 100 MG Tab PO SCH (08:30)
[2022-12-05] MEDS ORDERED: Melatonin 3 MG Tab PO SCH (09:00)
[2022-12-05] MEDS ORDERED: Benzocaine/Cetylpyridinium/Menthol Lozenge MUCMEM PRN (10:27)
[2022-12-05] MEDS: Melatonin 3 MG Tab PO SCH (20:22)
[2022-12-06] MEDS: cloNIDine 0.1 MG Tab PO SCH ×2 (08:16→20:51)
[2022-12-06] MEDS: Lisinopril 10 MG Tab PO SCH ×2 (08:17→20:51)
[2022-12-06] MEDS: levETIRAcetam 250 MG Tab PO SCH ×2 (08:17→20:51)
[2022-12-06] MEDS: Carvedilol 12.5 MG Tab PO SCH ×2 (08:17→20:52)
[2022-12-06] MEDS: Folic Acid 1 MG Tab PO SCH (08:17)
[2022-12-06] MEDS: Thiamine 100 MG Tab PO SCH (08:18)
[2022-12-06] MEDS: Pantoprazole 80 MG in Sodium Chloride 0.9% 100 ML IV SCH (08:47)
[2022-12-06] MEDS: Pantoprazole 40 MG Tab.CR PO SCH (15:59)
[2022-12-06] MEDS: Melatonin 3 MG Tab PO SCH (20:52)
[2022-12-07 02:08] LABS: H. PYLORI BREATH TEST Negative (Negative)
[2022-12-07] MEDS ORDERED: Potassium Chloride 20 MEQ Tab.ER PO ONE ×2 (08:15→17:00)
[2022-12-07] MEDS: Pantoprazole 40 MG Tab.CR PO SCH ×2 (08:20→17:40)
[2022-12-07] MEDS: Folic Acid 1 MG Tab PO SCH (08:37)
[2022-12-07] MEDS: levETIRAcetam 250 MG Tab PO SCH ×2 (08:39→20:17)
[2022-12-07] MEDS: Lisinopril 10 MG Tab PO SCH ×2 (08:39→20:18)
[2022-12-07] MEDS: Carvedilol 12.5 MG Tab PO SCH ×2 (08:40→20:19)
[2022-12-07] MEDS: cloNIDine 0.1 MG Tab PO SCH ×2 (08:40→20:18)
[2022-12-07] MEDS: Thiamine 100 MG Tab PO SCH (08:41)
[2022-12-07] MEDS: Melatonin 3 MG Tab PO SCH (20:18)
[2022-12-08] MEDS: Pantoprazole 40 MG Tab.CR PO SCH (08:05)
[2022-12-08] MEDS: levETIRAcetam 250 MG Tab PO SCH (08:27)
[2022-12-08] MEDS: Carvedilol 12.5 MG Tab PO SCH (08:27)
[2022-12-08] MEDS: cloNIDine 0.1 MG Tab PO SCH (08:29)
[2022-12-08] MEDS: Folic Acid 1 MG Tab PO SCH (08:29)
[2022-12-08] MEDS: Thiamine 100 MG Tab PO SCH (08:30)
[2022-12-08 12:43] VITALS: BP 112/67; PULSE 86
== END 2022-12-08 13:10 | disposition home or self-care (01) | DRG 378 ==
LOC: JP.ED 15:11 → JP.ICU 17:04
PROVIDERS: ADMIT Hospitalist; ATTEND Hospitalist
PROC: 0DB68ZX Excision of Stomach, Via Natural or Artificial Opening Endoscopic, Diagnostic (ICD-10-PCS; principal; 2022-12-05)
DX: K26.4 Chronic or unspecified duodenal ulcer with hemorrhage (principal); D62 Acute posthemorrhagic anemia; K20.90 Esophagitis, unspecified without bleeding; K29.90 Gastroduodenitis, unspecified, without bleeding; K44.9 Diaphragmatic hernia without obstruction or gangrene; J44.9 Chronic obstructive pulmonary disease, unspecified; F10.90 Alcohol use, unspecified, uncomplicated; E87.5 Hyperkalemia; I10 Essential (primary) hypertension; F17.210 Nicotine dependence, cigarettes, uncomplicated; Z20.822 Contact with and (suspected) exposure to COVID-19; I95.9 Hypotension, unspecified; N40.0 Benign prostatic hyperplasia without lower urinary tract symptoms; R56.9 Unspecified convulsions; Z79.82 Long term (current) use of aspirin; Z79.899 Other long term (current) drug therapy; Z91.81 History of falling; Z86.16 Personal history of COVID-19; Z87.81 Personal history of (healed) traumatic fracture; Z90.89 Acquired absence of other organs; Z98.890 Other specified postprocedural states
CPT/HCPCS: 0241U; 36415; 80048; 80053; 80307; 81001; 83013; 83735; 84132; 85018; 85025; 85610; 86850; 86900; 86901; 87081; 93005; 93010; 96361; 96365; 96366; 96376; 99222; 99232; 99238; 99285; 99285-25; A9270-GY; C9113; J2704; J3010; J3411; J3475; J3490; J7030; J7120